=== PATIENT | male | born 1985 | race Caucasian/White ===

== ENCOUNTER 2016-12-04 12:21 | Emergency (ER) | payer MEDICARE ==
[2016-12-04 13:15] LABS: HEMOGLOBIN 14.4 gm/dl (14.0-17.5); RED BLOOD COUNT 5.31 M/UL (4.20-5.50); WHITE BLOOD COUNT 8.7 K/UL (4.5-11.0)
[2016-12-04 13:38] LABS: BUN/CREATININE RATIO 6 (0-10)
== END 2016-12-04 15:00 | disposition home or self-care (01) ==
LOC: ER1 12:21
PROVIDERS: Physician Assistant Medical
DX: L03.213 Periorbital cellulitis (principal); F17.210 Nicotine dependence, cigarettes, uncomplicated
CPT/HCPCS: 36415; 70487; 80053; 85025; 99284; J7050; Q9966